=== PATIENT | male | born 1995 | race Caucasian/White ===

== ENCOUNTER 2019-02-18 18:28 | Emergency (ER) | payer BC ==
[~2019-02-18] VITALS: Ht 185.4 cm; Wt 77.3 kg
[2019-02-18 18:47] VITALS: TEMP 98
[2019-02-18 19:55] LABS: BASO # 0.1 (0.0-0.2); BASO % 0.7 % (0.0-2.0); EOS % 0.1 % (0-4.0); GRAN # 12.5 (1.4-6.5); HEMOGLOBIN 17.8 g/dl (13.5-18.0); LYMPH # 0.8 (1.2-3.4); LYMPH % 5.2 % (20.0-51.0); MEAN CELL VOLUME 98 fl (80.0-100.0); MEAN CORPUSCULAR HEMOGLOBIN 33 pg (27.0-31.0); MEAN CORPUSCULAR HGB CONC 34 g/dl (33.0-37.0); MEAN PLATELET VOLUME 10.3 fl (7.4-10.4); MONO # 1.1 (0.1-0.6); MONO % 7.2 % (1.7-9.3); PLATELET COUNT 290 K/mm3 (130-400); RED BLOOD COUNT 5.34 M/mm3 (4.20-5.60); REDCELL DISTRIBUTION WIDTH-CV 12.5 % (11.5-14.5)
[2019-02-18 20:01] LABS: HEMATOCRIT 52.4 % (42.0-52.0)
[2019-02-18 20:16] LABS: ALANINE AMINOTRANSFERASE 12 U/L (21-72); ALBUMIN 5.2 gm/dL (3.5-5.0); ALKALINE PHOSPHATASE 110 U/L (50-136); ANION GAP 27 mmol/L (7-16); AST,SGOT 40 U/L (15-37); BILIRUBIN,TOTAL 1.2 mg/dL (0.0-1.0); BLOOD UREA NITROGEN 17 mg/dL (9-20); CALCIUM 10.5 mg/dL (8.4-10.2); CARBON DIOXIDE 17 mmol/L (22-30); CHLORIDE 97 mmol/L (98-107); CREATININE, serum 0.94 (0.66-1.25); GLUCOSE 362 mg/dL (74-106); LIPASE 46 U/L (23-300); POTASSIUM 4.7 mmol/L (3.4-5.0); SODIUM 141 mmol/L (137-145); TOTAL PROTEIN 8.3 gm/dL (6.4-8.2)
[2019-02-18 20:25] LABS: ARTERIAL BLD GAS O2 SATURATION 96.2 % (92-100); ARTERIAL BLD GAS TCO2 CT 17.4; ARTERIAL BLOOD GAS BASE EXCESS -7.6 (-2-2); ARTERIAL BLOOD GAS HCO3 16.5 meq/L (22-26); ARTERIAL BLOOD GAS PCO2 30.7 mmHg (35-45); ARTERIAL BLOOD GAS PO2 88.4 mmHg (80-100); ARTERIAL BLOOD GAS pH 7.35 (7.35-7.45)
[2019-02-18 20:31] LABS: ACETONE,SERUM SMALL
[2019-02-18 22:42] LABS: ALANINE AMINOTRANSFERASE 15 U/L (21-72); ALBUMIN 4.4 gm/dL (3.5-5.0); ALKALINE PHOSPHATASE 77 U/L (50-136); ANION GAP 21 mmol/L (7-16); AST,SGOT 32 U/L (15-37); BILIRUBIN,TOTAL 0.8 mg/dL (0.0-1.0); BLOOD UREA NITROGEN 15 mg/dL (9-20); CALCIUM 9.4 mg/dL (8.4-10.2); CARBON DIOXIDE 15 mmol/L (22-30); CHLORIDE 106 mmol/L (98-107); CREATININE, serum 0.84 (0.66-1.25); GLUCOSE 232 mg/dL (74-106); SODIUM 142 mmol/L (137-145); TOTAL PROTEIN 6.9 gm/dL (6.4-8.2)
[2019-02-18 23:06] LABS: ACETONE,SERUM SMALL
[2019-02-19 01:09] LABS: ARTERIAL BLD GAS TCO2 CT 19.6; ARTERIAL BLOOD GAS BASE EXCESS -4.6 (-2-2); ARTERIAL BLOOD GAS HCO3 18.7 meq/L (22-26); ARTERIAL BLOOD GAS PCO2 30.3 mmHg (35-45); ARTERIAL BLOOD GAS PO2 81.8 mmHg (80-100); ARTERIAL BLOOD GAS pH 7.41 (7.35-7.45)
[2019-02-19] MEDS ORDERED: ZOFRAN 4MG T4 MG/TAB PO (01:25)
[2019-02-19 02:27] VITALS: BP 117/62; PULSE 93
== END 2019-02-19 02:30 | disposition home or self-care (01) ==
LOC: COL.ER 18:28
PROVIDERS: Emergency Medicine
DX: E10.65 Type 1 diabetes mellitus with hyperglycemia (principal); R19.7 Diarrhea, unspecified; E10.10 Type 1 diabetes mellitus with ketoacidosis without coma; F17.210 Nicotine dependence, cigarettes, uncomplicated
CPT/HCPCS: C9113; J1200; J2405; J2550; J2765; J7030

== ENCOUNTER 2019-11-04 17:10 | Inpatient (IN) | payer BC ==
[~2019-11-04] VITALS: Ht 182.9 cm; Wt 80.4 kg
[~2019-11-04 17:10] MED LIST: ZOFRAN 4MG T4 MG/TAB PO
[2019-11-04 17:53] LABS: COLLECTION METHOD CLEAN CATCH
[2019-11-04 18:02] LABS: PH 6 (5-8); SQUAMOUS EPITHELIAL None Seen /hpf; URINE APPEARANCE Clear; URINE BACTERIA None Seen /hpf; URINE BILIRUBIN Negative (NEGATIVE); URINE BLOOD Negative (NEGATIVE); URINE COLOR Straw; URINE GLUCOSE 3+ (NEGATIVE); URINE KETONE 2+ (NEGATIVE); URINE LEUKOCYTE ESTERASE Negative (NEGATIVE); URINE NITRATE Negative (NEGATIVE); URINE PROTEIN(semi-quant) Negative (NEGATIVE); URINE RBC None Seen /hpf; URINE UROBILINOGEN Negative (NEGATIVE)
[2019-11-04 18:14] LABS: HEMATOCRIT 48.6 % (42.0-52.0); HEMOGLOBIN 16.5 g/dl (13.5-18.0); MEAN CELL VOLUME 101 fl (80.0-100.0); MEAN CORPUSCULAR HEMOGLOBIN 34 pg (27.0-31.0); MEAN CORPUSCULAR HGB CONC 34 g/dl (33.0-37.0); MEAN PLATELET VOLUME 10.1 fl (7.4-10.4); PLATELET COUNT 286 K/mm3 (130-400); REDCELL DISTRIBUTION WIDTH-CV 11.7 % (11.5-14.5)
[2019-11-04 18:17] LABS: ALANINE AMINOTRANSFERASE 28 U/L (21-72); ALBUMIN 5.1 gm/dL (3.5-5.0); ALKALINE PHOSPHATASE 96 U/L (50-136); ANION GAP 28 mmol/L (7-16); AST,SGOT 42 U/L (15-37); BILIRUBIN,TOTAL 1.6 mg/dL (0.0-1.0); BLOOD UREA NITROGEN 18 mg/dL (9-20); CALCIUM 9.9 mg/dL (8.4-10.2); CHLORIDE 98 mmol/L (98-107); CREATININE, serum 1.09 (0.66-1.25); LIPASE 57 U/L (23-300); POTASSIUM 4.3 mmol/L (3.4-5.0); SODIUM 140 mmol/L (137-145); TOTAL PROTEIN 7.6 gm/dL (6.4-8.2)
[2019-11-04 18:28] LABS: CARBON DIOXIDE 14 mmol/L (22-30); GLUCOSE 521 mg/dL (74-106)
[2019-11-04 18:38] LABS: ACETONE,SERUM SMALL
[2019-11-04 18:45] LABS: BAND 3 % (0-10); LYMPHOCYTE 4 % (20.0-51.0); NEUTROPHILS 85 % (42.0-75.2); PLATELET ESTIMATE NORMAL (NORMAL)
[2019-11-04] MEDS ORDERED: LEXAPRO 10MG10 MG PO (19:11)
--- NOTE | 2019-11-04 19:25 | NUR ---
RECEIVED REPORT FROM RYAN GRANT. AWAITING ARRIVAL OF PT TO ICU 1.
--- NOTE | 2019-11-04 19:55 | NUR ---
PT ARRIVES TO ICU 1. ABLE TO TRANSFER SELF TO ICU BED, STEADT GAIT NOTED. PT PLACED ON BEDSIDE CONTINUOUS MONITORING. CALL LIGHT AND URINAL WITHIN REACH. NO ACUTE S/S OF ACUTE DISTRESS NOTED.
[2019-11-04 20:00] VITALS: BP 118/70; PULSE 97; TEMP 98.1
[2019-11-04 20:03] VITALS: BP 130/72; PULSE 96; TEMP 98.1
--- NOTE | 2019-11-04 20:05 | NUR ---
VESNA COY AT BEDSIDE FOR ASSESSMENT. NEW ORDERS RECEIVED.
[2019-11-04] MEDS ORDERED: NOVOLOG 100U100 U/M1 SQ (20:45)
[2019-11-04 20:51] LABS: CALCIUM 8.9 mg/dL (8.4-10.2); CREATININE, serum 0.92 (0.66-1.25); MAGNESIUM 1.9 mg/dL (1.6-2.3); PHOSPHOROUS 3.3 mg/dL (2.5-4.5); POTASSIUM 3.9 mmol/L (3.4-5.0)
[2019-11-05] VITALS: BP 118/62; PULSE 95; TEMP 98.2
[2019-11-05 00:57] LABS: CALCIUM 8.7 mg/dL (8.4-10.2); CREATININE, serum 0.81 (0.66-1.25); POTASSIUM 4.3 mmol/L (3.4-5.0)
[2019-11-05 02:39] LABS: CALCIUM 8.5 mg/dL (8.4-10.2); CREATININE, serum 0.81 (0.66-1.25)
[2019-11-05 04:00] VITALS: BP 122/58; PULSE 80; TEMP 98.5
[2019-11-05 04:25] LABS: BASO # 0.1 (0.0-0.2); BASO % 0.5 % (0.0-2.0); EOS % 0.1 % (0-4.0); GRAN # 8.1 (1.4-6.5); HEMATOCRIT 41.3 % (42.0-52.0); LYMPH # 1.5 (1.2-3.4); LYMPH % 13.7 % (20.0-51.0); MEAN CELL VOLUME 99 fl (80.0-100.0); MEAN CORPUSCULAR HEMOGLOBIN 34 pg (27.0-31.0); MEAN CORPUSCULAR HGB CONC 34 g/dl (33.0-37.0); MEAN PLATELET VOLUME 9.7 fl (7.4-10.4); MONO # 1.5 (0.1-0.6); MONO % 13.2 % (1.7-9.3); PLATELET COUNT 236 K/mm3 (130-400); RED BLOOD COUNT 4.17 M/mm3 (4.20-5.60); REDCELL DISTRIBUTION WIDTH-CV 11.7 % (11.5-14.5)
[2019-11-05 04:26] LABS: HEMOGLOBIN 14.2 g/dl (13.5-18.0)
[2019-11-05 04:34] LABS: ALBUMIN 3.7 gm/dL (3.5-5.0); BILIRUBIN,TOTAL 0.8 mg/dL (0.0-1.0); CALCIUM 8.3 mg/dL (8.4-10.2); CREATININE, serum 0.79 (0.66-1.25); POTASSIUM 3.8 mmol/L (3.4-5.0)
[2019-11-05 06:46] LABS: CALCIUM 8.5 mg/dL (8.4-10.2); CREATININE, serum 0.79 (0.66-1.25); POTASSIUM 3.6 mmol/L (3.4-5.0)
--- NOTE | 2019-11-05 07:30 | NUR ---
VESNA COY STATES TO HAVE HOME INSULIN PUMP PLACED AND INSULIN GTT OFF AT SHIFT CHANGE. PT ABLE TO PLACE OWN PUMP ON. DENIES ANY PROBLEMS. VSS. CALL LIGHT WITHIN REACH. SITTING UP IN BED EATING BREAKFAST.
--- NOTE | 2019-11-05 07:55 | NUR ---
Bedside report received from RYAN Ron. Pt remains off insulin gtt. Pt restarted his own insulin pump. Continue q1hr blood sugar checks.
--- NOTE | 2019-11-05 08:00 | NUR ---
Assessment completed. Pt watching tv in bed. States he feels better this morning. Discussed plan of care r/t blood sugar checks, labs and dr crain. Pt verbalized understanding. Pt requests to wait on flu vaccine until discharge. Call light in reach.
[2019-11-05 08:11] LABS: CALCIUM 8.3 mg/dL (8.4-10.2); CREATININE, serum 0.77 (0.66-1.25); POTASSIUM 3.9 mmol/L (3.4-5.0)
[2019-11-05 08:35] VITALS: BP 133/74; PULSE 90; TEMP 98.8
[2019-11-05 10:20] LABS: CALCIUM 8.4 mg/dL (8.4-10.2); CREATININE, serum 0.83 (0.66-1.25); POTASSIUM 4.3 mmol/L (3.4-5.0)
[2019-11-05 12:03] VITALS: BP 135/80; PULSE 87; TEMP 98.6
[2019-11-05 15:05] LABS: CREATININE, serum 0.89 (0.66-1.25)
[2019-11-05 16:00] VITALS: BP 132/86; PULSE 85; TEMP 98.4
[2019-11-05 16:07] LABS: CALCIUM 8.9 mg/dL (8.4-10.2); CREATININE, serum 0.82 (0.66-1.25); POTASSIUM 3.6 mmol/L (3.4-5.0)
--- NOTE | 2019-11-05 16:25 | NUR ---
Notified ARSLAN Dow with Dr Blakely of pt's BMP results. Pt request to go home today.
--- NOTE | 2019-11-05 16:40 | NUR ---
BASILIO met with the patient to discuss discharge plan. The patient lives in [place] with three roommates and is a student at [employer]. He states that his parent's, Veronica Miller ([phone]) and Ed Miller ([phone]), live in [place]. The patient declined for BASILIO to contact [employer]'s Office of Student Life to notify them of his hospitalization. He reports independence with ADLs and does not have any DME. The patient states that his Secondary Market Manager, Neeru Scott APRN is also his PCP. He states that he utilizes the [facility] while here for primary care and gets his medications there. The patient plans to return home with his roommates upon discharge. No additional needs at this time.
--- NOTE | 2019-11-05 16:45 | NUR ---
discharge paperwork given to pt. Discussed discharge orders, medications, follow up appointments and education with pt. Pt states he will follow up with his flash designer. He also stated he will talk with his flash designer for diabetic education as outpatient. All questions answered to pt's satisfaction. Pt states his ride is on his way to pick him up.
--- NOTE | 2019-11-05 17:10 | NUR ---
Pt discharged from ICU. Pt walked out of unit with friend, who is driving him home.
== END 2019-11-05 17:10 | disposition home or self-care (01) | DRG 639 ==
LOC: COL.ER 17:10 → ICU 18:35
PROVIDERS: Emergency Medicine; Nurse Practitioner Family; Student in an Organized Health Care Education/Training Program; ADMIT Hospitalist
DX: E10.10 Type 1 diabetes mellitus with ketoacidosis without coma (principal); Z87.891 Personal history of nicotine dependence; F32.9 Major depressive disorder, single episode, unspecified
CPT/HCPCS: 99222-AI; 99239; J1650; J1815; J2060; J2405; J3480; J7030